=== PATIENT | female | born 1940 | race Caucasian/White ===

== ENCOUNTER 2018-10-03 10:35 | Observation (INO) ==
--- NOTE | 2018-10-03 11:05 | Emergency Department Note ---
Disposition Clinical Impression: Left arm weakness, Left leg weakness, History of diabetes mellitus, History of hypertension, History of hyperlipidemia, Frail elderly, Cerebrovascular disease Disposition: Admitted As Inpatient Referrals: Francois Silva Jr, MD [Primary Care Provider] - Forms: ED Satisfaction Letter Time of Disposition: 15:49 General Adult HPI - General Chief complaint: ED Neuro Symptoms/Deficit Stated complaint: Neuro symptoms x3 days Time Seen by Provider: 10/03/18 10:58 Source: patient Limitations: no limitations - History of Present Illness HPI Narrative: 78-year-old female reports to the emergency department with complaints of left upper and left lower extremity weakness which began on Tuesday. She states she was returning from [place] when she noticed the symptoms. The patient reports she had to drag her leg and is having trouble holding things in her left hand. The patient reports things got somewhat worse yesterday. She is not anticoagulated. She denies a headache. There is no history of neck stiffness rash fever convulsion or confusion no facial drooping or slurred speech. The patient denies chest pain. She has had a cough and some slight shortness of breath. No coughing up blood leg swelling or pain or syncope. No abdominal pain vomiting diarrhea or flank or back pain reported. There is no history of urinary symptomatology. She denies prior stroke, no history of cervical rey rgery. No bowel or bladder problems. The patient states she has a history of hypertension hypercholesterolemia as well as diabetes mellitus. No other acute complaints or concerns. Pain Scale: 0 - Related Data Home Medications Medication Instructions Recorded Confirmed Atorvastatin [Lipitor] 10 mg PO HS 10/03/18 10/03/18 Diltiazem [Cardizem] 30 mg PO Q8HR 10/03/18 10/03/18 GlipiZIDE [Glipizide Xl] 5 mg PO DAILY 10/03/18 10/03/18 Insulin Glargine,Hum.rec.anlog 35 unit SQ BID 10/03/18 10/03/18 [Lantus Solostar] LORazepam [Ativan] 0.5 mg PO TID 10/03/18 10/03/18 Omeprazole [PriLOSEC] 20 mg PO DAILY 10/03/18 10/03/18 Valsartan [Diovan] 80 mg PO DAILY 10/03/18 10/03/18 Allergies Allergy/AdvReac Type Severity Reaction Status Date / Time No Known Allergies Allergy Verified 10/03/18 15:09 All systems ED: reviewed and negative except as stated. Past Medical History - Past Medical History Medical history: Reports: diabetes, hyperlipidemia, hypertension - Social History Smoking Status: Former smoker Smokeless Tobacco Status: No Alcohol use: Reports: none Drug use: Reports: none Physical Exam - General Limitations: no limitations General appearance: alert, in no apparent distress - Head Head exam: atraumatic, normocephalic, normal inspection - Eye Eye exam: Present: normal appearance, PERRL, EOMI. Absent: nystagmus - ENT ENT exam: normal exam, normal oropharynx, mucous membranes moist, TM's normal bilaterally - Neck Neck exam: Present: normal inspection, full ROM, trachea midline. Absent: tenderness, meningismus - Chest Chest inspection: Present: symmetric chest wall rise. Absent: tenderness - Respiratory Respiratory exam: Present: normal lung sounds bilaterally. Absent: respiratory distress, accessory muscle use, prolonged expiratory phase - Cardiovascular Cardiovascular exam: Present: regular rate, normal rhythm, normal heart sounds - Abdominal Exam Abdominal exam: Present: soft, Non-Tender, normal bowel sounds. Absent: tenderness, distention, guarding, rebound, rigidity - Extremities Exam Extremities exam: Present: normal inspection, normal capillary refill. Absent: full ROM, tenderness, pedal edema, calf tenderness - Expanded Lower Extremity Exam Neurovascular/Tendon exam: Present: normal capillary refill. Absent: tendon deficit, extremity cold to touch, pallor - Back Exam Back exam: Present: normal inspection, full ROM. Absent: tenderness, CVA tenderness (R), CVA tenderness (L), vertebral tenderness - Neurological Exam Neurological exam: Present: alert, oriented X3, CN II-XII intact, motor sensory deficit (Left upper extremity weakness versus the right noted, mild left lower extremity weakness versus the right noted, pronator drift positive left side.) - Psychiatric Psychiatric exam: Present: normal affect, normal mood - Skin Skin exam: Present: warm, dry, intact, normal color Course Vital Signs Temperature 97.5 F L 10/03/18 10:38 Pulse Rate 69 10/03/18 10:38 Respiratory Rate 16 10/03/18 10:38 Blood Pressure 173/87 10/03/18 10:38 O2 Sat by Pulse Oximetry 98 10/03/18 10:38 Temperature 97.5 F L 10/03/18 10:38 Pulse Rate 58 10/03/18 15:00 Respiratory Rate 16 10/03/18 15:00 Blood Pressure 150/79 10/03/18 15:00 O2 Sat by Pulse Oximetry 99 10/03/18 15:00 Oxygen Delivery Oxygen Delivery Room Air Medical Decision Making - MDM Narrative Medical decision making narrative: The patient describes left upper and left lower extremity weakness since Tuesday. She has had 3 days of neurologic symptomatology. The patient demonstrates left upper extremity weakness mild left lower extremity weakness and a pronator drift on the left. CT scan reveals cerebrovascular disease with no acute process identified. Aspirin was ordered. The patient's laboratory studies indicate an element of hyperglycemia she is known to be diabetic and did not take her insulin since last night. Insulin subcutaneous was ordered. Based on the patient's age, significant risk factors, and acute neurologic defects with vascular comorbidities including hyperlipidemia hypertension diabetes mellitus age and cerebrovascular disease noted on CT scan, I thought it be appropriate to admit the patient to the hospital. I discussed the case with the neurology APC working with Dr. Pritchett, they recommended medical admission with neurology consult. A formal neurology consult was ordered. I discussed the case with the hospitalist on-call Dr. Greenfield who has accepted the patient to his care. The patient is currently stable pending admission. - Lab Data Lab results reviewed: Yes I reviewed the patient's lab results. Result diagrams: 10/03/18 11:22 10/03/18 11:22 Lab Results 10/03/18 10/03/18 10/03/18 Range/Units 11:22 11:22 11:22 WBC 6.2 (4.3-11.1) K/mcL RBC 4.47 (3.82-4.97) M/mcL Hgb 13.2 (11.5-15.4) g/dL Hct 39.6 (35.3-44.9) % MCV 88.6 (83.0-100.0) fL MCH 29.5 (28.0-33.3) pg MCHC 33.3 (31.6-35.5) g/dL RDW 13.2 (11.5-14.5) % Plt Count 301 (140-400) K/mcL MPV 10.9 (9.4-12.4) fL PT 11.1 (9.4-12.1) Seconds INR 1.0 APTT 30.3 (26.0-36.0) Seconds Sodium 136 (136-145) mEq/L Potassium 3.7 (3.5-5.1) mEq/L Chloride 99 (98-107) mEq/L Carbon Dioxide 27 (23-29) mEq/L BUN 20 (8-23) mg/dL Creatinine 0.81 (0.60-1.20) mg/dL Est GFR ( Amer) > 60 (> 60) Est GFR (Non-Af Amer) > 60 (> 60) BUN/Creatinine Ratio 25 (6-26) Glucose 361 H (70-105) mg/dL Calculated Osmolality 299 (280-300) Calcium 9.9 (8.6-10.3) mg/dL Total Bilirubin (0.3-1.0) mg/dL Direct Bilirubin (0.0-0.2) mg/dL Indirect Bilirubin (0.0-1.2) mg/dL AST (13-39) Units/L ALT (7-52) Units/L Alkaline Phosphatase (34-104) Units/L Troponin I < 0.03 (< 0.04) ng/mL C-Reactive Protein (Less than 10) mg/L Serum Total Protein (6.4-8.9) g/dL Albumin (3.5-5.7) g/dL Globulin (2.4-3.5) g/dL Albumin/Globulin Ratio (1.1-2.2) Urine Color (Yellow) Urine Clarity (Clear) Urine pH (5.0-8.0) pH Units Ur Specific [place] (1.010-1.025) Urine Protein (Neg-Trace) mg/dL Urine Glucose (UA) (Normal) mg/dL Urine Ketones (Negative) mg/dL Urine Blood (Negative) Urine Nitrite (Negative) Urine Bilirubin (Negative) Urine Urobilinogen (Normal) mg/dL Ur Leukocyte Esterase (Negative) Urine Microscopic RBC (0-3) per hpf Urine Microscopic WBC (0-3) per hpf Ur Squamous Epith Cells (None-Few) per lpf Urine Bacteria (None-Few) per hpf Hyaline Casts (None-Few) per lpf Ur Culture Indicated? (NO) 10/03/18 10/03/18 Range/Units 11:22 13:02 WBC (4.3-11.1) K/mcL RBC (3.82-4.97) M/mcL Hgb (11.5-15.4) g/dL Hct (35.3-44.9) % MCV (83.0-100.0) fL MCH (28.0-33.3) pg MCHC (31.6-35.5) g/dL RDW (11.5-14.5) % Plt Count (140-400) K/mcL MPV (9.4-12.4) fL PT (9.4-12.1) Seconds INR APTT (26.0-36.0) Seconds Sodium (136-145) mEq/L Potassium (3.5-5.1) mEq/L Chloride (98-107) mEq/L Carbon Dioxide (23-29) mEq/L BUN (8-23) mg/dL Creatinine (0.60-1.20) mg/dL Est GFR ( Amer) (> 60) Est GFR (Non-Af Amer) (> 60) BUN/Creatinine Ratio (6-26) Glucose (70-105) mg/dL Calculated Osmolality (280-300) Calcium (8.6-10.3) mg/dL Total Bilirubin 1.4 H (0.3-1.0) mg/dL Direct Bilirubin 0.2 (0.0-0.2) mg/dL Indirect Bilirubin 1.2 (0.0-1.2) mg/dL AST 20 (13-39) Units/L ALT 24 (7-52) Units/L Alkaline Phosphatase 72 (34-104) Units/L Troponin I (< 0.04) ng/mL C-Reactive Protein < 5 (Less than 10) mg/L Serum Total Protein 6.3 L (6.4-8.9) g/dL Albumin 4.2 (3.5-5.7) g/dL Globulin 2.1 L (2.4-3.5) g/dL Albumin/Globulin Ratio 2.0 (1.1-2.2) Urine Color Yellow (Yellow) Urine Clarity Cloudy A (Clear) Urine pH 6.0 (5.0-8.0) pH Units Ur Specific [place] 1.020 (1.010-1.025) Urine Protein Negative (Neg-Trace) mg/dL Urine Glucose (UA) >=1000 H (Normal) mg/dL Urine Ketones Negative (Negative) mg/dL Urine Blood Negative (Negative) Urine Nitrite Negative (Negative) Urine Bilirubin Negative (Negative) Urine Urobilinogen Normal (Normal) mg/dL Ur Leukocyte Esterase Negative (Negative) Urine Microscopic RBC 0-3 (0-3) per hpf Urine Microscopic WBC 3-5 H (0-3) per hpf Ur Squamous Epith Cells Many H (None-Few) per lpf Urine Bacteria Few (None-Few) per hpf Hyaline Casts None Seen (None-Few) per lpf Ur Culture Indicated? YES A (NO) - Radiology Data Radiology results reviewed: Yes I reviewed the patient's radiology results.
[2018-10-03 12:01] LABS: Hematocrit 39.6 % (35.3-44.9); Hemoglobin 13.2 g/dL (11.5-15.4); Mean Corpuscular HGB Conc 33.3 g/dL (31.6-35.5); Mean Corpuscular Hemoglobin 29.5 pg (28.0-33.3); Mean Corpuscular Volume 88.6 fL (83.0-100.0); Mean Platelet Volume 10.9 fL (9.4-12.4); Platelet Count 301 K/mcL (140-400); Red Blood Count 4.47 M/mcL (3.82-4.97); Red Cell Distribution Width 13.2 % (11.5-14.5); White Blood Count 6.2 K/mcL (4.3-11.1)
[2018-10-03 12:08] LABS: Prothrombin Time 11.1 Seconds (9.4-12.1)
[2018-10-03 12:11] LABS: Activated Partial Thrombo Time 30.3 Seconds (26.0-36.0)
[2018-10-03 12:17] LABS: Alanine Aminotransferase 24 Units/L (7-52); Albumin 4.2 g/dL (3.5-5.7); Alkaline Phosphatase 72 Units/L (34-104); Aspartate Amino Transferase 20 Units/L (13-39); Bilirubin,Direct 0.2 mg/dL (0.0-0.2); Bilirubin,Indirect 1.2 mg/dL (0.0-1.2); Bilirubin,Total 1.4 mg/dL (0.3-1.0); C-Reactive Protein < 5 mg/L (Less than 10); Globulin 2.1 g/dL (2.4-3.5); Total Protein 6.3 g/dL (6.4-8.9)
[2018-10-03 12:19] LABS: BUN/Creatinine Ratio 25 (6-26); Blood Urea Nitrogen 20 mg/dL (8-23); Calcium 9.9 mg/dL (8.6-10.3); Carbon Dioxide 27 mEq/L (23-29); Chloride 99 mEq/L (98-107); Glucose 361 mg/dL (70-105); Osmolality,Calculated 299 (280-300); Potassium 3.7 mEq/L (3.5-5.1); Sodium 136 mEq/L (136-145); Troponin I < 0.03 ng/mL (< 0.04); eGFR For African Americans > 60 (> 60); eGFR For Non-African Americans > 60 (> 60)
[2018-10-03 13:19] LABS: Bilirubin,Urine Negative (Negative); Blood,Urine Negative (Negative); Clarity,Urine Cloudy (Clear); Color,Urine Yellow (Yellow); Glucose,Urine (UA) >=1000 mg/dL (Normal); Ketones,Urine Negative (Negative); Leukocyte Esterase,Urine Negative (Negative); Nitrite,Urine Negative (Negative); Protein,Urine Negative (Neg-Trace); Urobilinogen,Urine Normal (Normal)
[2018-10-03 13:21] LABS: Bacteria,Urine Few per hpf (None-Few); Hyaline Casts,Urine None Seen per lpf (None-Few); RBC,Urine 0-3 per hpf (0-3); Squamous Epithelial Cell,Urine Many per lpf (None-Few)
[2018-10-03] MEDS ORDERED: Aspirin 325 MG TABLET PO ONE (15:07)
[2018-10-03] MEDS ORDERED: Insulin Regular, Human 100 UNIT/ML SQ ONE (15:43)
--- NOTE | 2018-10-03 16:26 | Neurology - Consult Note ---
Date of Encounter: 10/03/18 Time of Encounter: 16:22 Assessment and Plan (1) Left arm weakness Current Visit: Yes Status: Acute Patient presented with chief complaint of left upper extremity and left lower extremity weakness onset [address] head negative for acute infarct, positive for remote right thalamic infarct, which she was unaware of and thus had no residual deficits Physical exam positive for left upper extremity weakness but not left lower extremity weakness, no facial droop or other focal deficits Stroke is less likely but considered, musculoskeletal left upper extremity etiology is also a possibility We have ordered MRI of the head/brain, echocardiogram, bilateral carotid Dopplers, daily 81 mg aspirin, daily statin We will continue to follow imaging results and symptoms and physical exam Further recommendations per (2) History of CVA (cerebrovascular accident) without residual deficits Current Visit: No Status: Chronic Remote infarct identified head, this was unknown to her, she had no deficits prior to this presentation, patient is already on aspirin and statin History of Present Illness Chief complaint: left arm and leg weakness HPI: Ms. Antonio is a 78 year old female with a past medical history of hypertension, hyperlipidemia, diabetes who presented to the ER today for 2 days of left upper tremulous function weakness. She states that she firstsymptoms Tuesday during a car ride back from [place]. She states that they were at a rest stop and when she went to go back into the car she noticed that her left arm was having difficulty opening the car door. Over the last 2 days her left upper extremity weakness has worsened, and she has had left lower extremity weakness and foot drop as well. She has never had these symptoms before and does not have a history of stroke. She denies any associated slurred speech, facial droop, confusion, syncope, tremor or seizure-like activity, chest pain or shortness of breath, fever or chills, neck stiffness. On presentation to the emergency department she was evaluated for strokelike symptoms, was taken to head CT and given a [address] demonstrated global volume loss, no acute abnormality, presumed chronic lacunar infarct in the right thalamus. Due to time window of onset of symptoms she is obviously out of the window for TPA, and due to head CT findings stroke alert and [facility] telemedicine were not initiated. Patient will be admitted to hospitalist service for stroke workup. Past Med Surg Social Fam HX - Past Medical History Medical history: diabetes, hyperlipidemia, hypertension Additional medical history: vertigo, anxiety. *see pcp records also - Social History Smoking Status: Former smoker Smokeless Tobacco Status: No Alcohol use: none Drug use: none Medications and Allergies Atorvastatin [Lipitor] 10 mg PO HS 10/03/18 [History] Diltiazem [Cardizem] 30 mg PO Q8HR 10/03/18 [History] GlipiZIDE [Glipizide Xl] 5 mg PO DAILY 10/03/18 [History] Insulin Glargine,Hum.rec.anlog [Lantus Solostar] 35 unit SQ BID 10/03/18 [History] LORazepam [Ativan] 0.5 mg PO TID 10/03/18 [History] Omeprazole [PriLOSEC] 20 mg PO DAILY 10/03/18 [History] Valsartan [Diovan] 80 mg PO DAILY 10/03/18 [History] Allergy/AdvReac Type Severity Reaction Status Date / Time No Known Allergies Allergy Verified 10/03/18 15:09 All Systems: The remainder of the systems were reviewed and are negative Review of Systems: 10 point review systems negative except as otherwise mentioned in history of present illness. Physical Examination - Vital Signs Vital Signs: Initial Vital Signs Temp Pulse Resp BP Pulse Ox 97.5 F L 69 16 173/87 98 10/03/18 10:38 10/03/18 10:38 10/03/18 10:38 10/03/18 10:38 10/03/18 10:38 - Exam Exam: Examination: General Examination: *CONSTITUTIONAL: Alert and oriented x3, no acute distress *GENERAL APPEARANCE OF PATIENT appears healthy and well groomed *EYES: pupils equal, round, reactive to light and accommodation, conjunctiva clear without masses or ulcerations *CARDIOVASCULAR: RRR, S1, S2, no mumurs, rubs, or gallops, no peripheral edema, no carotid bruit * MUSCULOSKELETAL: *GAIT AND STATION: normal Romberg testing *ASSESSMENT OF MUSCLE STRENGTH IN THE UPPER AND LOWER EXTREMITIES right deltoid, bicep, tricep, actuarial mathematician strength, bilateral hip flexors ,anterior tibialis, dorsoflexion of the foot 5/5 left deltoid, bicep, tricep, actuarial mathematician strength 3/5 *MUSCLE TONE IN THE UPPER AND LOWER EXTREMITIES normal. No abnormal movements, fasciculations or atrophy identified. Neurological: *ORIENTATION to person, situation, time and place *LANGUAGE AND FUNCTION no significant aphasia or dysarthia was noted. *ATTENTION AND CONCENTRATION are normal *FUND OF KNOWLEDGE aware of current events, past history, vocabulary *MENTAL attention span and concentration normal. *CN II visual vaughan intact *CN III,IV, PERRLA extraocular eye movements were full, no nystagmus and no ptosis noted. *CN V shows normal sensation and jaw opens symmetrically. *CN VII shows normal facial movement symmetrically, upper and lower bilaterally. *CN VIII shows no significant hearing loss on exam *CN IX-X palate elevated symmetrically *CN XI normal strength in the sternocleidomastoid muscles, symmetrical shoulder shrugging. *CN XII tongue protruded in the midline, with normal strength and movement. *SENSORY EXAMINATION light touch intact *REFLEXES: deep tendon reflexes were normal and symmetrical , grade 2/4 diffusely, no pathological reflexes were noted. *CEREBELLAR TESTING normal heel/knee/mario *PAIN LEVEL 0/10 Results - Laboratory Findings CBC and BMP: 10/03/18 11:22 10/03/18 11:22 Abnormal lab findings: Abnormal lab results Glucose 361 mg/dL (70-105) H 10/03/18 11:22 Total Bilirubin 1.4 mg/dL (0.3-1.0) H 10/03/18 11:22 Serum Total Protein 6.3 g/dL (6.4-8.9) L 10/03/18 11:22 Globulin 2.1 g/dL (2.4-3.5) L 10/03/18 11:22 Urine Clarity Cloudy (Clear) A 10/03/18 13:02 Urine Glucose (UA) >=1000 mg/dL (Normal) H 10/03/18 13:02 Urine Microscopic WBC 3-5 per hpf (0-3) H 10/03/18 13:02 Ur Squamous Epith Cells Many per lpf (None-Few) H 10/03/18 13:02 Ur Culture Indicated? YES (NO) A 10/03/18 13:02 Consult Discharge Plan - Plan Referrals: Francois Silva Jr, MD [Primary Care Provider] -
[2018-10-03] MEDS ORDERED: Naloxone 0.4 MG/ML INJ IVP PRN (17:40)
[2018-10-03] MEDS ORDERED: Acetaminophen 325 MG TABLET PO PRN (17:40)
[2018-10-03] MEDS ORDERED: Dextrose Gel 15 GM/37.5 ML TUBE PO PRN ×2 (17:41)
[2018-10-03] MEDS ORDERED: *HR* Dextrose 50 % in Water (Syg) 50 ML SYRINGE IVP PRN (17:41)
[2018-10-03] MEDS ORDERED: D5% in Water 1,000 ML IVC PRN (17:41)
--- NOTE | 2018-10-03 17:45 | Internal Med History&Physical ---
Date of Encounter: 10/03/18 Time of Encounter: 17:42 Internal Medicine - H&P: HPI Chief complaint: weakness Admitted From: Emergency Dept Plans for Post Hospital Care: Home History of present illness: Ms. Antonio is a 78 year old female with history of hypertension, hyperlipidemia, diabetes mellitus who presented with left upper left lower extremity weakness Tuesday. She was in [place] started of symptoms which came back. She has been having trouble holding onto things on the left side as well as dragging her left foot. Symptoms have worsened. Has some numbness at the tip of her fingers on the left side as well. No facial droop. No speech abnormalities. In the ED CT head negative for any acute findings. Was outside of the window for TPA. Given aspirin and statin. Seen by neurology already with the plan is to workup for CVA/TIA. Denies headache, blurry vision, nausea, vomiting, fevers, chills, dizziness, chest pain, shortness of breath, abdominal pain, diarrhea, constipation, or urinary symptoms. Past Med Surg Social Fam HX - Past Medical History Medical history: diabetes, hyperlipidemia, hypertension Additional medical history: vertigo, anxiety. *see pcp records also - Social History Smoking Status: Former smoker Smokeless Tobacco Status: No Alcohol use: none Drug use: none Internal Medicine - H&P: Meds Atorvastatin [Lipitor] 10 mg PO HS 10/03/18 [History] Diltiazem [Cardizem] 30 mg PO Q8HR 10/03/18 [History] GlipiZIDE [Glipizide Xl] 5 mg PO DAILY 10/03/18 [History] Insulin Glargine,Hum.rec.anlog [Lantus Solostar] 35 unit SQ BID 10/03/18 [History] LORazepam [Ativan] 0.5 mg PO TID 10/03/18 [History] Omeprazole [PriLOSEC] 20 mg PO DAILY 10/03/18 [History] Valsartan [Diovan] 80 mg PO DAILY 10/03/18 [History] Allergy/AdvReac Type Severity Reaction Status Date / Time No Known Allergies Allergy Verified 10/03/18 15:09 All Systems PM: A 10-system review of systems was performed and is negative for pertinent findings except as documented above in the HPI. Review of systems: All systems reviewed are negative except for as mentioned above - Constitutional Vitals: Temp Pulse Resp BP Pulse Ox 97.5 F L 78 18 168/86 97 10/03/18 10:38 10/03/18 16:05 10/03/18 16:05 10/03/18 16:05 10/03/18 16:05 Exam: GEN: NAD HEENT: AT, NC, No cyanosis, oral mucosa is moist, No JVD Lymphatics: No lymphadenoapthy Eyes: Extrocular muscles intact, anicteric CVS:RRR. S1, S2, No m/r/g RESP: CTAB ABD: Soft, NT, ND, +BS EXT: No edema, No rashes, 2+ DP NEURO: Unable to raise left upper extremity. Strength is about 2/5. CN II-XII intact, No sensory deficits to light touch Psych: Cooperative, Not anxious or depressed Internal Med - H&P Results - Labs CBC & Chem 7: 10/03/18 11:22 10/03/18 11:22 Labs: Short CBC 10/03/18 Range/Units 11:22 WBC 6.2 (4.3-11.1) K/mcL Hgb 13.2 (11.5-15.4) g/dL Hct 39.6 (35.3-44.9) % Plt Count 301 (140-400) K/mcL BMP 10/03/18 11:22 Sodium 136 Potassium 3.7 Chloride 99 Carbon Dioxide 27 BUN 20 Creatinine 0.81 Glucose 361 H Calcium 9.9 Cardiac Enzymes 10/03/18 Range/Units 11:22 Troponin I < 0.03 (< 0.04) ng/mL Liver Function 10/03/18 Range/Units 11:22 Total Bilirubin 1.4 H (0.3-1.0) mg/dL Direct Bilirubin 0.2 (0.0-0.2) mg/dL AST 20 (13-39) Units/L ALT 24 (7-52) Units/L Alkaline Phosphatase 72 (34-104) Units/L Albumin 4.2 (3.5-5.7) g/dL Urine 10/03/18 Range/Units 13:02 Urine Color Yellow (Yellow) Urine Clarity Cloudy A (Clear) Urine pH 6.0 (5.0-8.0) pH Units Ur Specific [place] 1.020 (1.010-1.025) Urine Protein Negative (Neg-Trace) mg/dL Urine Glucose (UA) >=1000 H (Normal) mg/dL - Impressions ITS Impressions Chest X-Ray 10/03/18 11:05 IMPRESSION: No acute process. D/ / Chuck Jack MD / Chuck Jack MD Interpreting Provider: Chuck Jack MD Head CT 10/03/18 11:06 IMPRESSION: 1. No acute intracranial abnormality. 2. [id number] global parenchymal volume loss with extensive chronic microvascular ischemic changes. 3. Presumed chronic lacunar infarct within the right thalamus. 4. Atherosclerosis. D/ / Lui Johnston MD / Lui Johnston MD Interpreting Provider: Lui oJhnston MD - Assessment and Plan (1) Left arm weakness Current Visit: Yes Status: Acute Assessment and plan: Admit for TIA/CVA work up. Neurology consult. MRI brain, echo, cartoids. Check A1c/lipid panel. Aspirin/statin. Neurochecks. (2) Left leg weakness Current Visit: Yes Status: Acute Assessment and plan: As above (3) History of diabetes mellitus Current Visit: Yes Status: Acute Assessment and plan: SSI. Accucheks (4) History of hyperlipidemia Current Visit: Yes Status: Acute Assessment and plan: c/w home meds (5) History of hypertension Current Visit: Yes Status: Acute Assessment and plan: c/w home meds (6) DVT prophylaxis Current Visit: Yes Status: Acute Assessment and plan: Heparin SQ - Time Spent With Patient Total time spent is greater than 50% in coordination of care (as documented) at patient's floor/unit and/or counseling patient:
[2018-10-03] MEDS ORDERED: Perflutren Lipid Microsphere 1.3 ML in 0.9 % Sodium Chloride 8.7 ML IVP ONE (18:23)
[2018-10-03] MEDS: Insulin LISPRO 300 UNITS/3 ML VIAL SQ SCH (20:31)
[2018-10-03] MEDS ORDERED: *HR* LORazepam 0.5 MG TABLET PO PRN (21:00)
[2018-10-03] MEDS: *HR* Heparin 5,000 UNIT/ML VIAL SQ SCH (22:52)
[2018-10-04] MEDS: Insulin LISPRO 300 UNITS/3 ML VIAL SQ SCH ×4 (00:13→16:45)
[2018-10-04 04:03] LABS: Basophils # 0.1 K/mcL (0.0-0.2); Basophils % 1.1 %; Eosinophils # 0.2 K/mcL (0.0-0.6); Eosinophils % 2.5 %; Hematocrit 38.4 % (35.3-44.9); Hemoglobin 12.9 g/dL (11.5-15.4); Immature Granulocytes % 0.3 % (0-4); Lymphocytes # 2.6 K/mcL (0.6-4.6); Lymphocytes % 32.7 %; Mean Corpuscular HGB Conc 33.6 g/dL (31.6-35.5); Mean Corpuscular Hemoglobin 29.5 pg (28.0-33.3); Mean Corpuscular Volume 87.7 fL (83.0-100.0); Mean Platelet Volume 10.7 fL (9.4-12.4); Monocytes # 0.7 K/mcL (0.0-1.3); Monocytes % 8.6 %; Neutrophils # 4.3 K/mcL (1.6-8.9); Platelet Count 297 K/mcL (140-400); Red Blood Count 4.38 M/mcL (3.82-4.97); Red Cell Distribution Width 13.1 % (11.5-14.5); Segmented Neutrophils % 54.8 %; White Blood Count 7.9 K/mcL (4.3-11.1)
[2018-10-04 04:14] LABS: Estimated Average Glucose 295 mg/dl
[2018-10-04 04:25] LABS: Alanine Aminotransferase 22 Units/L (7-52); Albumin 3.7 g/dL (3.5-5.7); Albumin/Globulin Ratio 1.8 (1.1-2.2); Alkaline Phosphatase 74 Units/L (34-104); Aspartate Amino Transferase 18 Units/L (13-39); BUN/Creatinine Ratio 24 (6-26); Bilirubin,Total 0.9 mg/dL (0.3-1.0); Blood Urea Nitrogen 23 mg/dL (8-23); Calcium 9.4 mg/dL (8.6-10.3); Carbon Dioxide 25 mEq/L (23-29); Chloride 102 mEq/L (98-107); Chol/HDL Ratio 5.2 (0-4.9); Cholesterol 161 mg/dL (< 200); Globulin 2.1 g/dL (2.4-3.5); Glucose 288 mg/dL (70-105); HDL Cholesterol 31 mg/dL (40-59); LDL Cholesterol,Calculated 76 mg/dL (0-99); Magnesium 1.7 mg/dL (1.6-2.6); Osmolality,Calculated 300 (280-300); Potassium 3.3 mEq/L (3.5-5.1); Sodium 138 mEq/L (136-145); Total Protein 5.8 g/dL (6.4-8.9); Triglycerides 269 mg/dL (< 150); eGFR For African Americans > 60 (> 60); eGFR For Non-African Americans 56 (> 60)
[2018-10-04 04:34] LABS: Thyroid Stimulating Hormone 1.801 mcIU/mL (0.340-5.600)
[2018-10-04] MEDS: *HR* Heparin 5,000 UNIT/ML VIAL SQ SCH ×3 (05:48→21:22)
--- NOTE | 2018-10-04 05:48 | Event Note ---
Date of Encounter: 10/03/18 Time of Encounter: 20:48 Alerted by patient's nurse that patient's MRI results of the head/brain were finished and showed acute ischemic lacunar infarct in the right thalamus, small acute ischemic infarct in the right precentral gyral cortex, no hemorrhage or mass effect, and severe chronic white matter microvascular ischemic changes. Discussed patient w/Dr. Rivera of Neurology for any new changes in plan of care. Recommendation to continue ASA and Lipitor as ordered and monitor BP closely to keep systolic pressure <180 for permissive HTN. As always, I appreciate the recommendations and consult. Nurse instructed to continue monitoring the pt. very closely overnight and Neurology to see tomorrow.
[2018-10-04] MEDS: Valsartan 80 MG TABLET PO SCH (08:05)
--- NOTE | 2018-10-04 08:06 | Electrocardiograph Report ---
[facility] [employer] Test Date: 2018-10-03 Pat Name: Joceline Antonio Department: [id number] Room: 3B24 Gender: F Corporate Administrative Assistant: : [id number] Requested By: Serafin Lorenzo Order Number: [id number] Reading MD: Abundio Blount Measurements Intervals [place] Rate: 62 P: 26 WI: 165 QRS: -44 QRSD: 108 T: 59 QT: 490 QTc: 498 Interpretive Statements Sinus rhythm Left anterior fascicular block Abnormal R-wave progression, early transition Borderline T abnormalities, anterior leads Borderline prolonged QT interval Left axis deviation Electronically Signed On 10-04-2018 8:04:08 EDT by Abundio Blount
[2018-10-04] MEDS ORDERED: Isovue-370 500 ML BOTTLE IVP ONE (08:17)
--- NOTE | 2018-10-04 08:24 | Neurology Progress Note ---
Date of Encounter: 10/04/18 Time of Encounter: 08:24 Assessment and Plan (1) Acute CVA (cerebrovascular accident) Current Visit: Yes Status: Acute MRI overnight demonstrating acute ischemic lacunar infarct in the right thalamus There is also a reported acute ischemic infarct in the right parietal cortex however on review of the imaging with Dr. Rivera we feel this is more likely remote Patient has had improvement in her symptoms overnight and no new acute abnormalities or focal deficits Considering the patient has failed aspirin therapy we will switch to clopidogrel, continue statin Given this is a cryptogenic stroke we will also proceed with CT scan of the head and neck/SPRING on top of originally ordered carotid Dopplers and TTE Once neurological stroke evaluation is complete please consider outpatient rhythm monitoring (2) Left arm weakness Current Visit: Yes Status: Acute Improved, continue to monitor, PT/OT consulted (3) History of CVA (cerebrovascular accident) without residual deficits Current Visit: No Status: Chronic Subjective Principal diagnosis: acute CVA Interval history: MRI overnight demonstrated acute right thalamus CVA. Patient was informed of the results overnight and I explained them again this morning. I explained to her that we will be performing additional testing today including CT angiogram of the head and neck to identify potential sources of the stroke. I also informed her we will be switching her from aspirin to Plavix. She stated she understood and agreed with the plan of care. She reported improvement in her left upper extremity weakness this morning and denied any new acute complaints. Objective - Constitutional Vitals: Temp Pulse Resp BP Pulse Ox 98.9 F 81 16 111/71 98 10/04/18 06:59 10/04/18 06:59 10/04/18 06:59 10/04/18 06:59 10/04/18 06:59 Exam: General Examination: *CONSTITUTIONAL: Alert and oriented x3, no acute distress *GENERAL APPEARANCE OF PATIENT appears healthy and well groomed *EYES: pupils equal, round, reactive to light and accommodation, conjunctiva clear without masses or ulcerations *CARDIOVASCULAR: RRR, S1, S2, no mumurs, rubs, or gallops, no peripheral edema, no carotid bruit * MUSCULOSKELETAL: *GAIT AND STATION: normal Romberg testing *ASSESSMENT OF MUSCLE STRENGTH IN THE UPPER AND LOWER EXTREMITIES right deltoid, bicep, tricep, chemical laboratory tester strength, bilateral hip flexors ,anterior tibialis, dorsoflexion of the foot 5/5 left deltoid, bicep, tricep, chemical laboratory tester strength 4/5 LUE external rotators 2/5 *MUSCLE TONE IN THE UPPER AND LOWER EXTREMITIES normal. No abnormal movements, fasciculations or atrophy identified. Neurological: *ORIENTATION to person, situation, time and place *LANGUAGE AND FUNCTION no significant aphasia or dysarthia was noted. *ATTENTION AND CONCENTRATION are normal *FUND OF KNOWLEDGE aware of current events, past history, vocabulary *MENTAL attention span and concentration normal. *CN II visual vaughan intact *CN III,IV, PERRLA extraocular eye movements were full, no nystagmus and no ptosis noted. *CN V shows normal sensation and jaw opens symmetrically. *CN VII shows normal facial movement symmetrically, upper and lower bilaterally. *CN VIII shows no significant hearing loss on exam *CN IX-X palate elevated symmetrically *CN XI normal strength in the sternocleidomastoid muscles, symmetrical shoulder shrugging. *CN XII tongue protruded in the midline, with normal strength and movement. *SENSORY EXAMINATION light touch intact *REFLEXES: deep tendon reflexes were normal and symmetrical , grade 2/4 diffusely, no pathological reflexes were noted. *CEREBELLAR TESTING normal heel/knee/mario *PAIN LEVEL 0/10 Results - Laboratory Findings CBC and BMP: 10/04/18 03:22 10/04/18 03:22 Abnormal lab findings: Abnormal lab results Potassium 3.3 mEq/L (3.5-5.1) L 10/04/18 03:22 Est GFR (Non-Af Amer) 56 (> 60) L 10/04/18 03:22 Glucose 288 mg/dL (70-105) H 10/04/18 03:22 POC Glucose 180 mg/dL (70-99) H 10/03/18 23:59 Hemoglobin A1c 11.9 % (-5.6) H 10/04/18 03:22 Total Bilirubin 1.4 mg/dL (0.3-1.0) H 10/03/18 11:22 Serum Total Protein 5.8 g/dL (6.4-8.9) L 10/04/18 03:22 Globulin 2.1 g/dL (2.4-3.5) L 10/04/18 03:22 Triglycerides 269 mg/dL (< 150) H 10/04/18 03:22 VLDL Cholesterol, Calc 54 mg/dL (< 31) H 10/04/18 03:22 HDL Cholesterol 31 mg/dL (40-59) L 10/04/18 03:22 Cholesterol/HDL Ratio 5.2 (0-4.9) H 10/04/18 03:22 Urine Clarity Cloudy (Clear) A 10/03/18 13:02 Urine Glucose (UA) >=1000 mg/dL (Normal) H 10/03/18 13:02 Urine Microscopic WBC 3-5 per hpf (0-3) H 10/03/18 13:02 Ur Squamous Epith Cells Many per lpf (None-Few) H 10/03/18 13:02 Ur Culture Indicated? YES (NO) A 10/03/18 13:02 Consult Discharge Plan - Plan Referrals: Francois Silva Jr, MD [Primary Care Provider] -
[2018-10-04] MEDS ORDERED: Famotidine 20 MG TABLET PO SCH (09:00)
[2018-10-04] MEDS ORDERED: Aspirin 81 MG TAB.CHEW PO SCH (09:00)
[2018-10-04] MEDS ORDERED: Famotidine 20 MG TABLET PO PRN (09:03)
[2018-10-04] MEDS: Insulin DETEMIR 100 UNIT/ML X5UNITS SQ SCH ×2 (09:21→20:42)
--- NOTE | 2018-10-04 11:13 | Internal Med Progress Note ---
Hospitalist Progress Note - Encounter Date of Encounter: 10/04/18 Time of Encounter: 07:30 - Subjective Interval History: Patient was seen and examined. left upper extremity and lower extremity weakness significantly improved. No numbness today. Was found to have a right thalamus acute ischemic infarct. Also a mention of small right precentral gyral cortex acute ischemic infarct as well. - Exam Vitals: Temp Pulse Resp BP Pulse Ox 97.9 F 73 16 116/54 95 10/04/18 08:54 10/04/18 08:54 10/04/18 08:54 10/04/18 08:54 10/04/18 08:54 Exam: GEN: NAD CVS:RRR. S1, S2, No m/r/g RESP: CTAB ABD: Soft, NT, ND, +BS EXT: No edema, No rashes, 2+ DP NEURO: Able to raise left upper extremity. Strength is about 4/5. CN II-XII intact, No sensory deficits to light touch - Assessment and Plan (1) Left arm weakness Current Visit: Yes Status: Acute Assessment and Plan: MRI brain results noted as mentioned above. Dr. Rivera wants to get a CTA head/neck as well as carotid duplex. Also wants a SPRING. Aspirin switched to plavix. c/w statin. c/w neuro checks. PT/OT. (2) Left leg weakness Current Visit: Yes Status: Acute Assessment and Plan: As above (3) History of diabetes mellitus Current Visit: Yes Status: Acute Assessment and Plan: A1C noted at 11.9. will increase home levemir to 40 units BID from 35 units BID. SSI. Accucheks. Advised to keep a log at home and take to PCP for further adjustments. (4) History of hyperlipidemia Current Visit: Yes Status: Acute Assessment and Plan: c/w home meds (5) History of hypertension Current Visit: Yes Status: Acute Assessment and Plan: c/w home meds (6) DVT prophylaxis Current Visit: Yes Status: Acute Assessment and Plan: Heparin SQ - Time Spent with Patient Total time spent is greater than 50% in coordination of care (as documented) at patient's floor/unit and/or counseling patient: Internal Medicine: Result - Labs CBC & Chem 7: 10/04/18 03:22 10/04/18 03:22 Labs: Short CBC 10/03/18 10/04/18 Range/Units 11:22 03:22 WBC 6.2 7.9 (4.3-11.1) K/mcL Hgb 13.2 12.9 (11.5-15.4) g/dL Hct 39.6 38.4 (35.3-44.9) % Plt Count 301 297 (140-400) K/mcL Neutrophils # 4.3 (1.6-8.9) K/mcL BMP 10/03/18 10/04/18 11:22 03:22 Sodium 136 138 Potassium 3.7 3.3 L Chloride 99 102 Carbon Dioxide 27 25 BUN 20 23 Creatinine 0.81 0.96 Glucose 361 H 288 H Calcium 9.9 9.4 Cardiac Enzymes 10/03/18 Range/Units 11:22 Troponin I < 0.03 (< 0.04) ng/mL Liver Function 10/03/18 10/04/18 Range/Units 11:22 03:22 Total Bilirubin 1.4 H 0.9 (0.3-1.0) mg/dL Direct Bilirubin 0.2 (0.0-0.2) mg/dL AST 20 18 (13-39) Units/L ALT 24 22 (7-52) Units/L Alkaline Phosphatase 72 74 (34-104) Units/L Albumin 4.2 3.7 (3.5-5.7) g/dL Urine 10/03/18 Range/Units 13:02 Urine Color Yellow (Yellow) Urine Clarity Cloudy A (Clear) Urine pH 6.0 (5.0-8.0) pH Units Ur Specific [place] 1.020 (1.010-1.025) Urine Protein Negative (Neg-Trace) mg/dL Urine Glucose (UA) >=1000 H (Normal) mg/dL - ABG Interpretation ABG results: PT/INR, D-dimer PT 11.1 Seconds (9.4-12.1) 10/03/18 11:22 - Impressions Impressions Chest X-Ray 10/03/18 11:05 IMPRESSION: No acute process. D/ / Chuck Jack MD / Chuck Jack MD Interpreting Provider: Chuck Jack MD Head CT 10/03/18 11:06 IMPRESSION: 1. No acute intracranial abnormality. 2. [id number] global parenchymal volume loss with extensive chronic microvascular ischemic changes. 3. Presumed chronic lacunar infarct within the right thalamus. 4. Atherosclerosis. D/ / Lui Johnston MD / Lui Johnston MD Interpreting Provider: Lui Johnston MD Brain MRI 10/03/18 16:19 IMPRESSION: 1. Acute ischemic lacunar infarct in the right thalamus. 2. Small acute ischemic infarct in the right precentral gyral cortex. 3. No hemorrhage or mass effect. 4. Severe chronic white matter microvascular ischemic changes. D/ / Stanislaw Espino / Stanislaw Espino Interpreting Provider: Stanislaw Espino Echocardiogram 10/03/18 16:19 Impressions: LVEF 55-60%. Normal LV chamber size, wall thickness and function. Mild left ventricular diastolic dysfunction. Atypical septal motion consistent with bundle branch block. Normal right ventricular structure and function. No evidence of a PFO with agitated saline contrast. Mild mitral regurgitation. No evidence of pulmonary hypertension. Left Ventricular Wall Motion: Rest Echo Findings All wall segments showed normal motion. Findings: Study Quality * Technically sub-optimal due to poor echocardiographic windows. ECG Findings * Sinus rhythm with BBB. Left Ventricle * LVEF 55-60%. * Normal LV chamber size, wall thickness and function. * Mild left ventricular diastolic dysfunction. * Atypical septal motion consistent with bundle branch block. Right Ventricle * Normal right ventricular structure and function. Left Atrium * Normal left atrial size. Right Atrium * Normal right atrial size. Interatrial Septum * No evidence of a PFO with agitated saline contrast. Aortic Valve * Aortic valve not well visualized. * No aortic regurgitation. * No aortic stenosis. Mitral Valve * Mild posterior mitral annular calcification. * No mitral stenosis. * Mild mitral regurgitation. Tricuspid Valve * Normal tricuspid valve structure and function. * Trace tricuspid regurgitation. * No evidence of pulmonary hypertension. Pulmonic Valve * Pulmonic valve is not well visualized. * No pulmonic regurgitation. Aorta * Normally sized aortic root. Pericardium * The pericardium appears normal. IVC * Normal IVC dimensions and inspiratory collapse. Pulmonary Artery * Pulmonary artery not well visualized. Consult Discharge Plan - Plan Referrals: Francois Silva Jr, MD [Primary Care Provider] -
[2018-10-05] MEDS: Insulin LISPRO 300 UNITS/3 ML VIAL SQ SCH ×3 (00:07→11:10)
[2018-10-05] MEDS: *HR* Heparin 5,000 UNIT/ML VIAL SQ SCH ×2 (05:50→11:13)
[2018-10-05] MEDS: Insulin DETEMIR 100 UNIT/ML X5UNITS SQ SCH (09:03)
[2018-10-05] MEDS: Valsartan 80 MG TABLET PO SCH (09:03)
--- NOTE | 2018-10-05 09:04 | Neurology Progress Note ---
Date of Encounter: 10/05/18 Time of Encounter: 09:04 Assessment and Plan (1) Acute CVA (cerebrovascular accident) Current Visit: Yes Status: Acute SPRING pending this morning, patient is entirely neurologically intact and at baseline except for left upper extremity weakness CTA head and neck yesterday negative except for mild left vertebral artery stenosis If SPRING is negative consider long-term cardiac rhythm monitoring Continue Plavix and statin in the hospital and at discharge Patient will likely be stable for discharge with follow-up from neurology standpoint after SPRING Further recommendations per Dr. Rivera (2) Left arm weakness Current Visit: Yes Status: Acute Continues to improve, patient will likely require outpatient PT/OT (3) History of CVA (cerebrovascular accident) without residual deficits Current Visit: No Status: Chronic Subjective Principal diagnosis: acute CVA Interval history: No acute events overnight no acute complaints this morning, she states her left upper extremity weakness continues to improve. SPRING ordered this morning, I informed the patient she will likely be stable for discharge from neurology standpoint after SPRING. Objective - Constitutional Vitals: Temp Pulse Resp BP Pulse Ox 98 F 67 16 124/70 96 10/05/18 06:43 10/05/18 06:43 10/05/18 06:43 10/05/18 06:43 10/05/18 06:43 Exam: General Examination: *CONSTITUTIONAL: Alert and oriented x3, no acute distress *GENERAL APPEARANCE OF PATIENT appears healthy and well groomed *EYES: pupils equal, round, reactive to light and accommodation, conjunctiva clear without masses or ulcerations *CARDIOVASCULAR: RRR, S1, S2, no mumurs, rubs, or gallops, no peripheral edema, no carotid bruit * MUSCULOSKELETAL: *GAIT AND STATION: Gait normal *ASSESSMENT OF MUSCLE STRENGTH IN THE UPPER AND LOWER EXTREMITIES right deltoid, bicep, tricep, spindle setter strength, bilateral hip flexors ,anterior tibialis, dorsoflexion of the foot 5/5 left deltoid, bicep, tricep, spindle setter strength 4/5 LUE shoulder external rotators 2/5 *MUSCLE TONE IN THE UPPER AND LOWER EXTREMITIES normal. No abnormal movements, fasciculations or atrophy identified. Neurological: *ORIENTATION to person, situation, time and place *LANGUAGE AND FUNCTION no significant aphasia or dysarthia was noted. *ATTENTION AND CONCENTRATION are normal *FUND OF KNOWLEDGE aware of current events, past history, vocabulary *MENTAL attention span and concentration normal. *CN II visual vaughan intact *CN III,IV, PERRLA extraocular eye movements were full, no nystagmus and no ptosis noted. *CN V shows normal sensation and jaw opens symmetrically. *CN VII shows normal facial movement symmetrically, upper and lower bilaterally. *CN VIII shows no significant hearing loss on exam *CN IX-X palate elevated symmetrically *CN XI normal strength in the sternocleidomastoid muscles, symmetrical shoulder shrugging. *CN XII tongue protruded in the midline, with normal strength and movement. *SENSORY EXAMINATION light touch intact *REFLEXES: deep tendon reflexes were normal and symmetrical , grade 2/4 diffusely, no pathological reflexes were noted. *CEREBELLAR TESTING normal heel/knee/mario *PAIN LEVEL 0/10 Results - Laboratory Findings CBC and BMP: 10/04/18 03:22 10/04/18 03:22 Abnormal lab findings: Abnormal lab results Potassium 3.3 mEq/L (3.5-5.1) L 10/04/18 03:22 Est GFR (Non-Af Amer) 56 (> 60) L 10/04/18 03:22 Glucose 288 mg/dL (70-105) H 10/04/18 03:22 POC Glucose 243 mg/dL (70-99) H 10/04/18 20:40 Hemoglobin A1c 11.9 % (-5.6) H 10/04/18 03:22 Total Bilirubin 1.4 mg/dL (0.3-1.0) H 10/03/18 11:22 Serum Total Protein 5.8 g/dL (6.4-8.9) L 10/04/18 03:22 Globulin 2.1 g/dL (2.4-3.5) L 10/04/18 03:22 Triglycerides 269 mg/dL (< 150) H 10/04/18 03:22 VLDL Cholesterol, Calc 54 mg/dL (< 31) H 10/04/18 03:22 HDL Cholesterol 31 mg/dL (40-59) L 10/04/18 03:22 Cholesterol/HDL Ratio 5.2 (0-4.9) H 10/04/18 03:22 Urine Clarity Cloudy (Clear) A 10/03/18 13:02 Urine Glucose (UA) >=1000 mg/dL (Normal) H 10/03/18 13:02 Urine Microscopic WBC 3-5 per hpf (0-3) H 10/03/18 13:02 Ur Squamous Epith Cells Many per lpf (None-Few) H 10/03/18 13:02 Ur Culture Indicated? YES (NO) A 10/03/18 13:02 Consult Discharge Plan - Plan Referrals: Francois Silva Jr, MD [Primary Care Provider] - 10/12/18 1:45 pm
[2018-10-05] MEDS ORDERED: 0.9 % Sodium Chloride 500 ML IVC ONE (09:45)
[2018-10-05] MEDS ORDERED: *HR* Midazolam HCl 5 MG/5 ML VIAL IVP PRN (09:45)
[2018-10-05] MEDS ORDERED: Lidocaine Viscous Oral Soln 15 ML SOLUTION MM PRN (09:45)
[2018-10-05] MEDS ORDERED: *HR* FentaNYL (PF) 100 MCG/2 ML VIAL IVP PRN (09:45)
[2018-10-05 11:02] VITALS: BP 129/83
--- NOTE | 2018-10-05 13:38 | Internal Med Progress Note ---
Hospitalist Progress Note - Encounter Date of Encounter: 10/05/18 Time of Encounter: 07:30 - Subjective Interval History: Patient was seen and examined. continues to feel better and improve. left upper extremity and lower extremity weakness significantly improved. No numbness today. Was found to have a right thalamus acute ischemic infarct. Also a mention of small right precentral gyral cortex acute ischemic infarct as well - Exam Vitals: Temp Pulse Resp BP Pulse Ox 97.5 F L 69 16 129/83 96 10/05/18 11:00 10/05/18 11:00 10/05/18 11:00 10/05/18 11:00 10/05/18 11:00 Exam: GEN: NAD CVS:RRR. S1, S2, No m/r/g RESP: CTAB ABD: Soft, NT, ND, +BS EXT: No edema, No rashes, 2+ DP NEURO: Able to raise left upper extremity. Strength is about 4/5. CN II-XII intact, No sensory deficits to light touch - Assessment and Plan (1) Left arm weakness Current Visit: Yes Status: Acute Assessment and Plan: MRI brain results noted as mentioned above. Work up revealed PFO on SPRING. Spoke to the neurology team who would like cardiology consulted. Aspirin switched to plavix. c/w statin. c/w neuro checks. PT/OT. (2) Left leg weakness Current Visit: Yes Status: Acute Assessment and Plan: As above (3) History of diabetes mellitus Current Visit: Yes Status: Acute Assessment and Plan: A1C noted at 11.9. c/w levemir 40 units BID. Increased from 35 units BID 10/05. SSI. Accucheks. Advised to keep a log at home and take to PCP for further adjus tments. (4) History of hyperlipidemia Current Visit: Yes Status: Acute Assessment and Plan: c/w home meds (5) History of hypertension Current Visit: Yes Status: Acute Assessment and Plan: c/w home meds (6) DVT prophylaxis Current Visit: Yes Status: Acute Assessment and Plan: Heparin SQ - Time Spent with Patient Total time spent is greater than 50% in coordination of care (as documented) at patient's floor/unit and/or counseling patient: Internal Medicine: Result - Labs CBC & Chem 7: 10/04/18 03:22 10/04/18 03:22 - ABG Interpretation ABG results: PT/INR, D-dimer PT 11.1 Seconds (9.4-12.1) 10/03/18 11:22 - Impressions Impressions Angiography CT 10/04/18 11:00 IMPRESSION: 1. Evolving acute/subacute lacunar infarction in the right thalamus and right precentral gyrus. No hemorrhage. 2. Diffuse parenchymal volume loss and severe chronic microvascular ischemic changes. 3. Mild stenosis in the proximal left vertebral artery due to atherosclerotic plaque. 4. No additional hemodynamically significant stenosis or branch occlusion in the cervical arterial circulation. 5. No hemodynamically significant stenosis or branch occlusion in the intracranial arterial circulation. D/ / 10/04/2018 12:18:40 Paris Low MD / christine Interpreting Provider: Paris Low MD Neck CTA 10/04/18 11:00 IMPRESSION: 1. Evolving acute/subacute lacunar infarction in the right thalamus and right precentral gyrus. No hemorrhage. 2. Diffuse parenchymal volume loss and severe chronic microvascular ischemic changes. 3. Mild stenosis in the proximal left vertebral artery due to atherosclerotic plaque. 4. No additional hemodynamically significant stenosis or branch occlusion in the cervical arterial circulation. 5. No hemodynamically significant stenosis or branch occlusion in the intracranial arterial circulation. D/ / 10/04/2018 12:18:40 Paris Low MD / christine Interpreting Provider: Paris Low MD Consult Discharge Plan - Plan Referrals: Francois Silva Jr, MD [Primary Care Provider] - 10/12/18 1:45 pm
--- NOTE | 2018-10-05 14:11 | Event Note ---
Date of Encounter: 10/05/18 Time of Encounter: 14:09 - Cardiology Event Note Patient found to have an acute CVA. TTE and SPRING reveals PFO. Out-pt referral made to Dr. Cortes to discuss PFO closure. 2 week event monitor ordered to r/o afib per madelien.
--- NOTE | 2018-10-05 14:14 | Discharge Summary ---
Date of Encounter: 10/05/18 Time of Encounter: 14:07 - Discharge Diagnosis (1) Acute CVA (cerebrovascular accident) Priority: Primary Status: Acute (2) Left arm weakness Priority: Primary Status: Acute (3) Left leg weakness Priority: Primary Status: Acute (4) PFO (patent foramen ovale) Priority: Primary Status: Acute (5) History of diabetes mellitus Priority: Secondary Status: Acute (6) History of hyperlipidemia Priority: Secondary Status: Acute (7) History of hypertension Priority: Secondary Status: Acute Hospital course: Ms. Antonio is a 78 year old female with history of hypertension, hyperlipidemia, diabetes mellitus who presented with left upper left lower extremity weakness Tuesday. She was in [place] started of symptoms which came back. She has been having trouble holding onto things on the left side as well as dragging her left foot. Symptoms have worsened. Has some numbness at the tip of her fingers on the left side as well. No facial droop. No speech abnormalities. In the ED CT head negative for any acute findings. Was outside of the window for TPA. Given aspirin and statin. Seen by neurology. MRI brain showed a right thalamus acute ischemic infarct. Also a mention of small right precentral gyral cortex acute ischemic infarct as well. 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 CTA neck and carotid duplex with minimal plaques. Echo with EF 55-60% and mild MR. Atypical septal motion consistent with bundle branch block. Seen by cardiology who placed an event monitor and will see her outpatient for possible closure of PFO. Patient was put on plavix as she was already on aspirin before coming in. Aspirin was stopped. Was on a statin. A1c was noted to be elevated at 11.9. Previously 8.8 in april 2017. Increased levemir to 40 units BID from 35 units BID and advised her on compliance and keeping a log and taking it to her PCP for further adjustments. Was discharged on 10/05/18 - Time Spent with Patient Total time spent providing and/or coordinating discharge services: - Discharge Medications Prescriptions: No Action Valsartan [Diovan] 80 mg PO DAILY Omeprazole [PriLOSEC] 20 mg PO DAILY PRN PRN Reason: Indigestion LORazepam [Ativan] 0.5 mg PO TID PRN PRN Reason: Anxiety Diltiazem [Cardizem] 60 mg PO HS Insulin Glargine,Hum.rec.anlog [Lantus Solostar] 35 unit SQ BID GlipiZIDE [Glucotrol] 5 mg PO DAILY Atorvastatin Calcium [Lipitor] 20 mg PO DAILY Home Medications: Diltiazem [Cardizem] 60 mg PO HS 10/03/18 [History] Insulin Glargine,Hum.rec.anlog [Lantus Solostar] 35 unit SQ BID 10/03/18 [History] LORazepam [Ativan] 0.5 mg PO TID PRN 10/03/18 [History] Omeprazole [PriLOSEC] 20 mg PO DAILY PRN 10/03/18 [History] Valsartan [Diovan] 80 mg PO DAILY 10/03/18 [History] Atorvastatin Calcium [Lipitor] 20 mg PO DAILY 10/04/18 [History] GlipiZIDE [Glucotrol] 5 mg PO DAILY 10/04/18 [History] Allergies/Adverse Reactions: Allergy/AdvReac Type Severity Reaction Status Date / Time No Known Allergies Allergy Verified 10/03/18 15:09 Date of admission: 10/03/18 18:35 Primary care physician: Francois Silva Jr, MD Consults: 10/03/18 15:43 Consult to Neurology [CONS] Stat Consulting Provider: [facility] Reason for Consult: Dr. Pritchett Time Notified: 15:43 Call Completed: Yes 10/03/18 17:38 Consult to Occupational Therapy [CONS] Routine Comment: Evaluate, develop and implement POC Reason for Consult: therapy/placement needs Does patient have active BEDREST order?: No Is patient medically & hemodynamically stable?: Yes Consult to Physical Therapy [CONS] Routine Comment: Evaluate, develop and implement POC Reason for Consult: PT eval Does patient have active BEDREST order?: No Is patient medically & hemodynamically stable?: Yes 10/05/18 13:34 Consult to Cardiology [CONS] Routine Comment: Consulting Provider: [facility] Reason for Consult: PFO Call Completed: Yes - Constitutional Vitals: Temp Pulse Resp BP Pulse Ox 97.5 F L 69 16 129/83 96 10/05/18 11:00 10/05/18 11:00 10/05/18 11:00 10/05/18 11:00 10/05/18 11:00 Exam: GEN: NAD CVS:RRR. S1, S2, No m/r/g RESP: CTAB ABD: Soft, NT, ND, +BS EXT: No edema, No rashes, 2+ DP NEURO: Able to raise left upper extremity. Strength is about 4/5. CN II-XII inta ct, No sensory deficits to light touch - Patient Status Disposition: Home, Self-Care Condition: Fair Overall status at discharge: patient is progressing back to baseline - Discharge Instructions Follow Up With: Francois Silva Jr, MD [Primary Care Provider] - 10/12/18 1:45 pm Gia Rivera MD [Partnered Physician] - (2-4 weeks) - Diet and Activity Activity: increase activity as tolerated Diet: diabetic diet
== END 2018-10-05 16:01 | disposition home or self-care (01) ==
LOC: 3BNU 10:35 → EMEROOARM 10:35 → SUATTDRO 18:35 → 3BNU 19:56
PROVIDERS: ADMIT Internal Medicine; ATTEND Internal Medicine

== ENCOUNTER 2019-02-19 12:54 | Inpatient (IN) ==
[2019-02-19] MEDS ORDERED: Ondansetron 4 MG/2 ML VIAL IVP PRN (15:17)
[2019-02-19] MEDS ORDERED: *HR* Heparin 5,000 UNIT/ML VIAL IVP PRN ×2 (15:23)
[2019-02-19] MEDS ORDERED: Heparin 25,000 UNIT/250 ML D5W 25,000 UNIT/250 ML IV.SOLN IVC SCH (15:30)
[2019-02-19] MEDS ORDERED: D5% in Water 1,000 ML IVC PRN (15:48)
[2019-02-19] MEDS ORDERED: Dextrose Gel 15 GM/37.5 ML TUBE PO PRN ×2 (15:48)
[2019-02-19] MEDS ORDERED: *HR* Dextrose 50 % in Water (Syg) 50 ML SYRINGE IVP PRN (15:48)
[2019-02-19 17:21] LABS: Hematocrit 37.5 % (35.3-44.9); Hemoglobin 12.6 g/dL (11.5-15.4); Mean Corpuscular HGB Conc 33.6 g/dL (31.6-35.5); Mean Corpuscular Hemoglobin 29.4 pg (28.0-33.3); Mean Corpuscular Volume 87.4 fL (83.0-100.0); Mean Platelet Volume 10.2 fL (9.4-12.4); Platelet Count 329 K/mcL (140-400); Red Blood Count 4.29 M/mcL (3.82-4.97); Red Cell Distribution Width 13.7 % (11.5-14.5); White Blood Count 10.9 K/mcL (4.3-11.1)
[2019-02-19 17:46] LABS: Troponin I 13.42 ng/mL (< 0.04)
[2019-02-19 17:56] LABS: BUN/Creatinine Ratio 28 (6-26); Blood Urea Nitrogen 20 mg/dL (8-23); Calcium 9.2 mg/dL (8.6-10.3); Carbon Dioxide 24 mEq/L (23-29); Chloride 102 mEq/L (98-107); Glucose 187 mg/dL (70-105); Osmolality,Calculated 296 (280-300); Potassium 3.2 mEq/L (3.5-5.1); Sodium 139 mEq/L (136-145); eGFR For African Americans > 60 (> 60); eGFR For Non-African Americans > 60 (> 60)
[2019-02-19] MEDS ORDERED: Potassium Chloride Elixir 20 MEQ/15 ML UDC PO ONE (18:03)
[2019-02-19] MEDS: Insulin LISPRO 300 UNITS/3 ML VIAL SQ SCH (18:19)
[2019-02-19] MEDS ORDERED: Insulin DETEMIR 100 UNIT/ML X5UNITS SQ SCH (21:00)
[2019-02-20] MEDS ORDERED: Insulin LISPRO 300 UNITS/3 ML VIAL SQ SCH (07:30)
[2019-02-20 07:40] LABS: Basophils # 0.1 K/mcL (0.0-0.2); Basophils % 0.8 %; Eosinophils # 0.1 K/mcL (0.0-0.6); Eosinophils % 1.3 %; Hematocrit 36.3 % (35.3-44.9); Hemoglobin 11.8 g/dL (11.5-15.4); Immature Granulocytes % 0.3 % (0-4); Lymphocytes % 32.6 %; Mean Corpuscular HGB Conc 32.5 g/dL (31.6-35.5); Mean Corpuscular Hemoglobin 29.2 pg (28.0-33.3); Mean Corpuscular Volume 89.9 fL (83.0-100.0); Mean Platelet Volume 10.3 fL (9.4-12.4); Monocytes % 10.9 %; Neutrophils # 4.9 K/mcL (1.6-8.9); Platelet Count 302 K/mcL (140-400); Red Blood Count 4.04 M/mcL (3.82-4.97); Red Cell Distribution Width 13.7 % (11.5-14.5); Segmented Neutrophils % 54.1 %; White Blood Count 9.1 K/mcL (4.3-11.1)
[2019-02-20 08:03] LABS: BUN/Creatinine Ratio 32 (6-26); Blood Urea Nitrogen 24 mg/dL (8-23); Calcium 9.1 mg/dL (8.6-10.3); Carbon Dioxide 24 mEq/L (23-29); Chloride 106 mEq/L (98-107); Glucose 73 mg/dL (70-105); Osmolality,Calculated 293 (280-300); Potassium 3.3 mEq/L (3.5-5.1); Sodium 140 mEq/L (136-145); eGFR For African Americans > 60 (> 60); eGFR For Non-African Americans > 60 (> 60)
[2019-02-20] MEDS ORDERED: Potassium Chloride 40 MEQ, Lidocaine 1% 2 ML in 0.9 % Sodium Chloride 500 ML IVPB ONE (08:08)
[2019-02-20] MEDS: Aspirin 81 MG TAB.CHEW PO SCH (08:32)
[2019-02-20] MEDS: Insulin LISPRO 300 UNITS/3 ML VIAL SQ SCH ×3 (08:33→17:27)
[2019-02-20] MEDS: Insulin DETEMIR 100 UNIT/ML X5UNITS SQ SCH ×2 (08:33→21:33)
[2019-02-20] MEDS ORDERED: 0.9 % Sodium Chloride 500 ML ONE (09:30)
[2019-02-20] MEDS ORDERED: Metoprolol XL (24 HR) Succ 25 MG TAB.ER.24H PO SCH ×2 (09:48→15:10)
[2019-02-20] MEDS ORDERED: *HR* FentaNYL (PF) 100 MCG/2 ML VIAL ONE (11:41)
[2019-02-20] MEDS ORDERED: *HR* Midazolam HCl 2 MG/2 ML VIAL ONE (11:41)
[2019-02-20] MEDS ORDERED: Heparin 1,000 UNITS/500 mL 500 ML ONE (11:42)
[2019-02-20] MEDS ORDERED: ISOVUE-370 200 ML INFUS..BTL ONE ×2 (11:42→14:46)
[2019-02-20] MEDS ORDERED: Nitroglycerin 1,000 MCG/10 ML VIAL IV ONE ×2 (11:42→14:44)
[2019-02-20] MEDS ORDERED: 0.9 % Sodium Chloride 1,000 ML ONE (11:42)
[2019-02-20] MEDS ORDERED: *HR* Heparin 10,000 UNIT/10 ML VIAL ONE (11:42)
[2019-02-20] MEDS ORDERED: *HR* Bivalirudin 250 MG VIAL IVC ONE (14:30)
[2019-02-20] MEDS ORDERED: *HR* Ticagrelor 90 MG TABLET ONE (15:00)
[2019-02-20] MEDS ORDERED: Nitroglycerin 0.4 MG TAB.SUBL SL PRN (15:16)
[2019-02-20] MEDS ORDERED: 0.9 % Sodium Chloride 1,000 ML IVC SCH (15:30)
[2019-02-20] MEDS: Acetaminophen 325 MG TABLET PO PRN (17:56)
[2019-02-21 09:27] LABS: Basophils # 0.1 K/mcL (0.0-0.2); Basophils % 0.5 %; Eosinophils # 0.1 K/mcL (0.0-0.6); Eosinophils % 0.9 %; Hematocrit 35.9 % (35.3-44.9); Hemoglobin 11.6 g/dL (11.5-15.4); Immature Granulocytes % 0.4 % (0-4); Lymphocytes # 1.4 K/mcL (0.6-4.6); Mean Corpuscular HGB Conc 32.3 g/dL (31.6-35.5); Mean Corpuscular Hemoglobin 29.5 pg (28.0-33.3); Mean Corpuscular Volume 91.3 fL (83.0-100.0); Mean Platelet Volume 10.3 fL (9.4-12.4); Monocytes % 9.3 %; Platelet Count 304 K/mcL (140-400); Red Blood Count 3.93 M/mcL (3.82-4.97); Red Cell Distribution Width 13.6 % (11.5-14.5); Segmented Neutrophils % 75.9 %; White Blood Count 10.5 K/mcL (4.3-11.1)
[2019-02-21] MEDS: Insulin LISPRO 300 UNITS/3 ML VIAL SQ SCH ×3 (09:30→16:31)
[2019-02-21 09:46] LABS: BUN/Creatinine Ratio 32 (6-26); Blood Urea Nitrogen 23 mg/dL (8-23); Calcium 8.9 mg/dL (8.6-10.3); Carbon Dioxide 25 mEq/L (23-29); Chloride 107 mEq/L (98-107); Glucose 97 mg/dL (70-105); Osmolality,Calculated 294 (280-300); Potassium 3.5 mEq/L (3.5-5.1); Sodium 140 mEq/L (136-145); eGFR For African Americans > 60 (> 60); eGFR For Non-African Americans > 60 (> 60)
[2019-02-21] MEDS: Aspirin 81 MG TAB.CHEW PO SCH (10:41)
[2019-02-21] MEDS: Metoprolol XL (24 HR) Succ 25 MG TAB.ER.24H PO SCH (10:41)
[2019-02-21] MEDS: Insulin DETEMIR 100 UNIT/ML X5UNITS SQ SCH ×2 (10:43→21:16)
[2019-02-21] MEDS ORDERED: *HR* LORazepam 0.5 MG TABLET PO PRN (13:07)
[2019-02-21] MEDS: Famotidine 20 MG TABLET PO SCH ×2 (13:17→21:16)
[2019-02-22 06:45] LABS: Basophils # 0.1 K/mcL (0.0-0.2); Basophils % 0.9 %; Eosinophils # 0.2 K/mcL (0.0-0.6); Eosinophils % 2.6 %; Hematocrit 33.5 % (35.3-44.9); Hemoglobin 11.2 g/dL (11.5-15.4); Immature Granulocytes % 0.3 % (0-4); Lymphocytes # 1.4 K/mcL (0.6-4.6); Lymphocytes % 20.6 %; Mean Corpuscular HGB Conc 33.4 g/dL (31.6-35.5); Mean Corpuscular Hemoglobin 29.1 pg (28.0-33.3); Mean Platelet Volume 10.8 fL (9.4-12.4); Monocytes # 0.7 K/mcL (0.0-1.3); Monocytes % 10.3 %; Neutrophils # 4.3 K/mcL (1.6-8.9); Platelet Count 304 K/mcL (140-400); Red Blood Count 3.85 M/mcL (3.82-4.97); Red Cell Distribution Width 13.8 % (11.5-14.5); Segmented Neutrophils % 65.3 %; White Blood Count 6.6 K/mcL (4.3-11.1)
[2019-02-22 07:01] LABS: BUN/Creatinine Ratio 34 (6-26); Blood Urea Nitrogen 23 mg/dL (8-23); Calcium 8.8 mg/dL (8.6-10.3); Carbon Dioxide 22 mEq/L (23-29); Chloride 107 mEq/L (98-107); Glucose 124 mg/dL (70-105); Osmolality,Calculated 295 (280-300); Potassium 3.7 mEq/L (3.5-5.1); Sodium 140 mEq/L (136-145); eGFR For African Americans > 60 (> 60); eGFR For Non-African Americans > 60 (> 60)
[2019-02-22] MEDS: Famotidine 20 MG TABLET PO SCH ×2 (08:06→21:43)
[2019-02-22] MEDS: Aspirin 81 MG TAB.CHEW PO SCH (08:06)
[2019-02-22] MEDS: Metoprolol XL (24 HR) Succ 25 MG TAB.ER.24H PO SCH (08:07)
[2019-02-22] MEDS: Insulin DETEMIR 100 UNIT/ML X5UNITS SQ SCH ×2 (08:07→21:43)
[2019-02-22] MEDS: Acetaminophen 325 MG TABLET PO PRN (08:11)
[2019-02-22] MEDS: Insulin LISPRO 300 UNITS/3 ML VIAL SQ SCH ×3 (08:14→17:55)
[2019-02-22] MEDS ORDERED: Heparin 1,000 UNITS/500 mL 500 ML ONE (12:04)
[2019-02-22] MEDS ORDERED: Nitroglycerin 1,000 MCG/10 ML VIAL IV ONE (12:04)
[2019-02-22] MEDS ORDERED: 0.9 % Sodium Chloride 2,000 ML ONE (12:04)
[2019-02-22] MEDS ORDERED: *HR* Heparin 10,000 UNIT/10 ML VIAL ONE (12:04)
[2019-02-22] MEDS ORDERED: ISOVUE-370 200 ML INFUS..BTL ONE (12:04)
[2019-02-22] MEDS ORDERED: *HR* Midazolam HCl 2 MG/2 ML VIAL ONE (12:20)
[2019-02-22] MEDS ORDERED: *HR* Atropine Sulfate 1 MG/10 ML SYRINGE ONE (16:29)
[2019-02-22] MEDS: *HR* Heparin 5,000 UNIT/ML VIAL SQ SCH (17:54)
[2019-02-23] MEDS: *HR* Heparin 5,000 UNIT/ML VIAL SQ SCH ×2 (04:50→17:20)
[2019-02-23 05:36] LABS: Basophils # 0.1 K/mcL (0.0-0.2); Basophils % 0.8 %; Eosinophils % 0.6 %; Hematocrit 34.8 % (35.3-44.9); Hemoglobin 11.3 g/dL (11.5-15.4); Immature Granulocytes % 0.3 % (0-4); Lymphocytes # 0.5 K/mcL (0.6-4.6); Lymphocytes % 7.2 %; Mean Corpuscular HGB Conc 32.5 g/dL (31.6-35.5); Mean Corpuscular Hemoglobin 29.5 pg (28.0-33.3); Mean Corpuscular Volume 90.9 fL (83.0-100.0); Mean Platelet Volume 10.7 fL (9.4-12.4); Monocytes # 0.6 K/mcL (0.0-1.3); Monocytes % 7.9 %; Neutrophils # 5.9 K/mcL (1.6-8.9); Platelet Count 290 K/mcL (140-400); Red Blood Count 3.83 M/mcL (3.82-4.97); Red Cell Distribution Width 13.3 % (11.5-14.5); Segmented Neutrophils % 83.2 %; White Blood Count 7.1 K/mcL (4.3-11.1)
[2019-02-23] MEDS: Insulin LISPRO 300 UNITS/3 ML VIAL SQ SCH ×3 (08:31→17:21)
[2019-02-23] MEDS: Aspirin 81 MG TAB.CHEW PO SCH (08:35)
[2019-02-23] MEDS: Famotidine 20 MG TABLET PO SCH ×2 (08:35→23:52)
[2019-02-23] MEDS: Insulin DETEMIR 100 UNIT/ML X5UNITS SQ SCH ×2 (08:35→23:53)
[2019-02-23 08:39] LABS: BUN/Creatinine Ratio 35 (6-26); Blood Urea Nitrogen 21 mg/dL (8-23); Calcium 8.7 mg/dL (8.6-10.3); Carbon Dioxide 18 mEq/L (23-29); Chloride 104 mEq/L (98-107); Glucose 106 mg/dL (70-105); Osmolality,Calculated 291 (280-300); Potassium 3.5 mEq/L (3.5-5.1); Sodium 139 mEq/L (136-145); eGFR For African Americans > 60 (> 60); eGFR For Non-African Americans > 60 (> 60)
[2019-02-23] MEDS ORDERED: Ringers Solution, Lactated 1,000 ML IVC SCH (10:30)
[2019-02-23] MEDS: Vancomycin Oral Soln 125 MG/2.5 ML UDC PO SCH ×2 (11:06→13:32)
[2019-02-23 12:05] LABS: C.difficile Toxin A/B Gene PCR Not detected (Not detect); Campylobacter by PCR Not detected (Not detect); Plesiomonas shigelloides PCR Not detected (Not detect); Salmonella PCR Not detected (Not detect); Vibrio PCR Not detected (Not detect); Vibrio cholerae PCR Not detected (Not detect)
[2019-02-23 12:06] LABS: Adenovirus F 40/41 PCR Not detected (Not detect); Astrovirus PCR Not detected (Not detect); Cryptosporidium by PCR Not detected (Not detect); Cyclospora cayetanensis PCR Not detected (Not detect); E. coli O157 by PCR Not detected (Not detect); Entamoeba histolytica PCR Not detected (Not detect); Enteroaggregative E.coli(EAEC) Not detected (Not detect); Enteropathogenic E.coli(EPEC) Not detected (Not detect); Enterotoxigenic E.coli (ETEC) Not detected (Not detect); Giardia lamblia PCR Not detected (Not detect); Norovirus GI/GII PCR Not detected (Not detect); Rotavirus A PCR Not detected (Not detect); Sapovirus PCR Not detected (Not detect); Shig/EnteroinvasiveE coli EIEC Not detected (Not detect); Shigalike tox-prod E coli STEC Not detected (Not detect); Yersinia enterocolitica PCR Not detected (Not detect)
[2019-02-23] MEDS ORDERED: MetroNIDAZOLE 500 MG/100 ML 500 MG/100 ML BAG IVPB ONE (16:34)
[2019-02-23] MEDS: levoFLOXacin 750 MG TABLET PO SCH (17:20)
[2019-02-23] MEDS: Lactobacillus 1 EACH CAP.SPRINK PO SCH (23:53)
[2019-02-23] MEDS: metroNIDAZOLE 500 MG TABLET PO SCH (23:53)
[2019-02-24 01:54] LABS: Basophils % 0.8 %; Eosinophils # 0.1 K/mcL (0.0-0.6); Eosinophils % 1.3 %; Hematocrit 31.8 % (35.3-44.9); Hemoglobin 10.9 g/dL (11.5-15.4); Immature Granulocytes % 0.2 % (0-4); Lymphocytes # 0.9 K/mcL (0.6-4.6); Lymphocytes % 17.5 %; Mean Corpuscular HGB Conc 34.3 g/dL (31.6-35.5); Mean Corpuscular Hemoglobin 29.3 pg (28.0-33.3); Mean Corpuscular Volume 85.5 fL (83.0-100.0); Mean Platelet Volume 10.1 fL (9.4-12.4); Monocytes # 0.7 K/mcL (0.0-1.3); Monocytes % 13.5 %; Neutrophils # 3.6 K/mcL (1.6-8.9); Platelet Count 268 K/mcL (140-400); Red Blood Count 3.72 M/mcL (3.82-4.97); Red Cell Distribution Width 13.3 % (11.5-14.5); Segmented Neutrophils % 66.7 %; White Blood Count 5.3 K/mcL (4.3-11.1)
[2019-02-24 03:22] LABS: BUN/Creatinine Ratio 29 (6-26); Blood Urea Nitrogen 19 mg/dL (8-23); Calcium 8.6 mg/dL (8.6-10.3); Carbon Dioxide 22 mEq/L (23-29); Chloride 106 mEq/L (98-107); Glucose 141 mg/dL (70-105); Osmolality,Calculated 287 (280-300); Potassium 3.4 mEq/L (3.5-5.1); Sodium 136 mEq/L (136-145); eGFR For African Americans > 60 (> 60); eGFR For Non-African Americans > 60 (> 60)
[2019-02-24] MEDS: *HR* Heparin 5,000 UNIT/ML VIAL SQ SCH (06:13)
[2019-02-24 08:03] VITALS: BP 118/67
[2019-02-24] MEDS: Insulin LISPRO 300 UNITS/3 ML VIAL SQ SCH (08:43)
[2019-02-24] MEDS: Aspirin 81 MG TAB.CHEW PO SCH (09:30)
[2019-02-24] MEDS: levoFLOXacin 750 MG TABLET PO SCH (09:30)
[2019-02-24] MEDS: Lactobacillus 1 EACH CAP.SPRINK PO SCH (09:30)
[2019-02-24] MEDS: Famotidine 20 MG TABLET PO SCH (09:30)
[2019-02-24] MEDS: metroNIDAZOLE 500 MG TABLET PO SCH (09:31)
[2019-02-24] MEDS: Insulin DETEMIR 100 UNIT/ML X5UNITS SQ SCH (09:33)
== END 2019-02-24 13:15 | disposition home or self-care (01) | DRG 247 ==
LOC: CDU → SUATTDRO 14:31 → 2NNU 02-20 15:22
PROVIDERS: ADMIT Internal Medicine; ATTEND Student in an Organized Health Care Education/Training Program